=== PATIENT | male | born 1955 | race Caucasian/White ===

== ENCOUNTER 2016-12-03 13:04 | Emergency (ER) | payer MEDICARE ==
--- NOTE | 2016-12-03 14:30 | Diagnostic Imaging Report ---
CHEST X-RAY: AP view INDICATION: Shortness of breath COMPARISON: None FINDINGS: Left basal density is noted. Chronic lung changes are noted. Mild cardiomegaly is noted. Left basal subsegmental atelectasis versus scarring is noted. Mild cardiomegaly is noted with atherosclerosis. Degenerative changes of the spine are noted. IMPRESSION: Left basal density which may be due to atelectasis, however, focal infiltrate cannot be excluded. Mild cardiomegaly with atherosclerosis.
[2016-12-03 14:33] LABS: % BASOPHILS 0.9 % (0.0-2.0); % EOSINOPHILS 0.7 % (0.0-5.0); % LYMPHOCYTES 55.8 % (20.0-50.0); % MONOCYTES 10.4 % (2.0-10.0); % NEUTROPHILS 32.2 % (40.0-80.0); HEMATOCRIT 41.1 % (39.0-49.0); MEAN CELL VOLUME 91.1 fl (80-99); MEAN CORPUSCULAR HEMOGLOBIN 31.1 pg (26.0-30.0); MEAN CORPUSCULAR HGB CONC 34.2 pg (28.0-36.0); MEAN PLATELET VOLUME 7.3 fl; RED BLOOD COUNT 4.51 Mil/cmm (4.30-5.70); RED CELL DISTRIBUTION WIDTH 14.8 % (11.5-20.0)
[2016-12-03 14:47] LABS: INR 0.88 (0.5-1.4)
[2016-12-03 14:50] LABS: PLATELET COUNT 80 Th/cmm (150-400); WHITE BLOOD COUNT 9.3 Th/cmm (4.8-10.8)
[2016-12-03 14:55] LABS: ALB/GLOB RATIO 1.2 (1.0-1.8); ALKALINE PHOSPHATASE 83 U/L (34-104); ANION GAP 12.5 (7.0-16.0); BILIRUBIN,TOTAL 0.9 mg/dL (0.3-1.0); BUN - UREA NITROGEN 11 mg/dL (7-25); BUN/CREATININE RATIO 18.3; CARBON DIOXIDE 20.9 mEq/L (21.0-31.0); CHLORIDE 106 mEq/L (98-107); CHOLESTEROL 201 mg/dL (<200); CREATININE - SERUM 0.6 mg/dL (0.7-1.3); GLUCOSE 86 mg/dL (70-105); POTASSIUM SERUM 3.4 mEq/L (3.5-5.1); SGOT 162 U/L (13-39); SGPT/ALT 100 U/L (7-52); SODIUM SERUM 136 mEq/L (136-145); TRIGLYCERIDES 60 mg/dL (<150)
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
== END 2016-12-03 22:00 | disposition left against medical advice (07) ==
LOC: ER 13:04
DX: F10.129 Alcohol abuse with intoxication, unspecified (principal); I10 Essential (primary) hypertension; F17.200 Nicotine dependence, unspecified, uncomplicated; Z88.0 Allergy status to penicillin
CPT/HCPCS: 36415-UA; 71010-TC; 80053-TC; 80061-TC; 80320-TC; 84443-TC; 84484-TC; 85025-TC; 85610-TC; 85730-TC; 86592-TC

== ENCOUNTER 2017-12-29 20:53 | Emergency (ER) | payer MEDICARE ==
--- NOTE | 2017-12-29 21:35 | ED Physician Chart ---
ED Chief Complaint/HPI - Patient Information Date Seen:: 12/29/17 Time Seen:: 21:15 Chief Complaint:: right upper arm pain History of Present Illness:: Patient complains of right upper arm pain. At age 22 he had a compound fracture of the right humerus after which he developed osteomyelitis. At age 24 he had his right biceps and part of the right humerus resected. Patient's had recent vomiting and diarrhea and mild abdominal pain. Allergies:: Allergies Allergy/AdvReac Type Severity Reaction Status Date / Time Penicillins Allergy Verified 12/03/16 13:23 Vitals:: Vital Signs - 8 hr 12/29/17 20:56 Temp 98.2 F HR 101 RR 20 BP 141/79 O2 Sat % 96 Historian:: Patient Review:: Nurse's Note Reviewed ED Review of Systems - Review of Systems General/Constitutional: No fever, No chills, No weight loss, No weakness, No diaphoresis, No edema, No loss of appetite Skin: No skin lesions, No rash, No bruising Head: No headache, No light-headedness Eyes: No loss of vision, No pain, No diplopia ENT: No earache, No nasal drainage, No sore throat, No tinnitus Neck: No neck pain, No swelling, No thyromegaly, No stiffness, No mass noted Cardio Vascular: No chest pain, No palpitations, No PND, No orthopnea, No edema Pulmonary: No SOB, No cough, No sputum, No wheezing GI: Pain G/U: No dysuria, No frequency, No hematuria Musculoskeletal: No bone or joint pain, No back pain, No muscle pain Endocrine: No polyuria, No polydipsia Psychiatric: No prior psych history, No depression, No anxiety, No suicidal ideation Hematopoietic: No bruising, No lymphadenopathy Allergic/Immuno: No urticaria, No angioedema Neurological: No syncope, No focal symptoms, No weakness, No paresthesia, No headache, No seizure, No dizziness, No confusion, No vertigo ED Past Medical History - Past Medical History Past Medical History: Other (left nephrectomy) Family History: HTN Social History: Smoker, Alcohol, Other (any alcohol consumption) Surgical History: other (see history; left nephrectomy) Psychiatricy History: None Medication: Reviewed Family Medical History - Family Member Mother History Unknown: Yes Living Status: Unknown Hx Family Cancer: No Hx Family Coronary Artery Disease: No Hx Family Congestive Heart Failure: No Hx Family Hypertension: No Hx Family Stroke: No Hx Family Diabetes: No Hx Family Seizures: No Hx Family Dementia: No Hx Family AIDS: No Hx Family HIV: No Hx Family COPD: No Hx Family Hepatitis: No Hx Family Psychiatric Problems: No Hx Family Tuberculosis: No ED Physical Exam - Physical Examination General/Constitutional: Well-developed, well-nourished, Alert, No distress Head: Atraumatic Eyes: Lids, conjuctiva normal, PERRL Other Skin comments:: Extensive scarring right upper arm; no signs of infection ENMT: External ears, nose nl, Lips, teeth, gums nl Other ENMT comments:: 4 out of for poor dental hygiene Neck: No nuchal rigidity Respiratory: Nl effort/Exclusion, Clear to Auscultation Cardio Vascular: RRR GI: No organomegaly, No hernia, Normal BS's Other GI comments:: Left mid abdominal and level of the umbilicus and left lower quadrant mild tenderness Extremities: Normal digits & nails Neuro/Psych: Alert/oriented Misc: No paraspinal tenderness ED Labs/Radiology/EKG Results - Lab Results Results: Laboratory Results - last 24 hr 12/29/17 21:46 WBC 11.5 H RBC 4.67 Hgb 13.9 Hct 40.6 L MCV 87.0 MCH 29.7 MCHC Differential 34.2 RDW 13.4 Plt Count 286 MPV 7.3 Neutrophils % 53.7 Lymphocytes % 34.0 Monocytes % 10.9 H Eosinophils % 0.7 Basophils % 0.7 Laboratory Results - last 24 hr 12/29/17 12/29/17 21:46 21:46 WBC 11.5 H RBC 4.67 Hgb 13.9 Hct 40.6 L MCV 87.0 MCH 29.7 MCHC Differential 34.2 RDW 13.4 Plt Count 286 MPV 7.3 Neutrophils % 53.7 Lymphocytes % 34.0 Monocytes % 10.9 H Eosinophils % 0.7 Basophils % 0.7 Sodium 131 L Potassium 4.2 Chloride 101 Carbon Dioxide 24.3 Anion Gap 9.9 BUN 14 Creatinine 0.8 Est GFR ( Amer) > 60.0 Est GFR (Non-Af Amer) > 60.0 BUN/Creatinine Ratio 17.5 Glucose 115 H Calcium 9.3 Magnesium 1.5 L ED Assessment - Assessment General Assessment: Patient is medically cleared for incarceration. He has leukocytosis without a left shift. The right upper arm pain is chronic from osteomyelitis and surgery done many years ago. ED Septic Shock - . Is Septic Shock (SBP<90, OR Lactate>4 mmol\L) present?: No - <6hrs of presentation: Vital Signs: Vital Signs - 8 hr 12/29/17 20:56 Temp 98.2 F HR 101 RR 20 BP 141/79 O2 Sat % 96 ED Reassessment (Disposition) - Reassessment Reassessment Condition:: Unchanged - Diagnosis Diagnosis:: Right upper arm pain; leukocytosis; status post left nephrectomy - Patient Disposition Discharge/Transfer:: Long Term/Penitentiary Condition at Disposition:: Stable, Unchanged ED Discharge Plan - Patient Disposition Forms: Penitentiary Clearance
[2017-12-29 21:51] LABS: % BASOPHILS 0.7 % (0.0-2.0); % EOSINOPHILS 0.7 % (0.0-5.0); % MONOCYTES 10.9 % (2.0-10.0); % NEUTROPHILS 53.7 % (40.0-80.0); BASOPHILE ABSOLUTE 0.1 Th/cumm (0-0.2); EOSINOPHILE ABSOLUTE 0.1 Th/cmm (0.1-0.4); HEMATOCRIT 40.6 % (41.0-60); HEMOGLOBIN 13.9 gm/dL (12-16); LYMPHOCYTE ABSOLUTE 3.9 Th/cmm (1.5-3.0); MEAN CORPUSCULAR HEMOGLOBIN 29.7 pg (26.0-30.0); MEAN CORPUSCULAR HGB CONC 34.2 pg (28.0-36.0); MEAN PLATELET VOLUME 7.3 fl; MONOCYTE ABSOLUTE 1.3 Th/cmm (0.3-1.0); NEUTROPHILE ABSOLUTE 6.1 Th/cmm (1.8-8.0); PLATELET COUNT 286 Th/cmm (150-400); RED BLOOD COUNT 4.67 Mil/cmm (4.30-5.70); RED CELL DISTRIBUTION WIDTH 13.4 % (11.5-20.0); WHITE BLOOD COUNT 11.5 Th/cmm (4.8-10.8)
[2017-12-29 22:11] LABS: ANION GAP 9.9 (7.0-16.0); BUN - UREA NITROGEN 14 mg/dL (7-25); CALCIUM SERUM 9.3 mg/dL (8.6-10.3); CARBON DIOXIDE 24.3 mEq/L (21.0-31.0); CHLORIDE 101 mEq/L (98-107); CREATININE - SERUM 0.8 mg/dL (0.7-1.3); GFR AFRICAN-AMERICAN > 60.0 ml/min (>90); GFR NON AFRICAN-AMERICAN > 60.0 ml/min; GLUCOSE 115 mg/dL (70-105); MAGNESIUM 1.5 mg/dL (1.9-2.7); POTASSIUM SERUM 4.2 mEq/L (3.5-5.1); SODIUM SERUM 131 mEq/L (136-145)
[2017-12-29 23:01] LABS: URINE MICROSCOPIC INDICATED? YES; URINE SOURCE RANDOM
[2017-12-29 23:03] LABS: URINE BILIRUBIN NEGATIVE (NEGATIVE); URINE BLOOD NEGATIVE (NEGATIVE); URINE GLUCOSE (UA) NEGATIVE (NEGATIVE); URINE KETONE NEGATIVE (NEGATIVE); URINE LEUKOCYTE ESTERASE NEGATIVE (NEGATIVE); URINE NITRATE NEGATIVE (NEGATIVE); URINE PH 6.5 (4.6 - 8.0); URINE PROTEIN 30 mg/dL (NEGATIVE); URINE UROBILINOGEN 0.2 E.U./dL (0.2 - 1.0)
[2017-12-29 23:04] LABS: URINE CLARITY CLEAR (CLEAR); URINE COLOR YELLOW
[2017-12-29 23:18] LABS: URINE BACTERIA OCCASIONAL /hpf (NONE SEEN); URINE EPITHELIAL CELLS OCCASIONAL /lpf (FEW); URINE RBC 0-2 /hpf (0-5); URINE WBC 0-2 /hpf (0-5)
== END 2017-12-29 23:15 | disposition still patient (30) ==
LOC: ER 20:53
DX: D72.829 Elevated white blood cell count, unspecified (principal); M79.621 Pain in right upper arm; R19.7 Diarrhea, unspecified; F17.200 Nicotine dependence, unspecified, uncomplicated; Z88.0 Allergy status to penicillin
CPT/HCPCS: 36415-UA; 80048-TC; 81001-TC; 83735-TC; 85025-TC; Z7502; Z7610

== ENCOUNTER 2018-07-13 11:08 | Inpatient (IN) | payer MEDICARE ==
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
--- NOTE | 2018-07-13 12:00 | Diagnostic Imaging Report ---
CHEST X-RAY: AP view INDICATION: Pneumonia COMPARISON: 12/03/2016 FINDINGS: Mild chronic lung changes are seen with increased bibasilar markings. No focal consolidation or effusions. Borderline prominent heart is noted with atherosclerosis.. Degenerative changes are noted. IMPRESSION: Mild increased bibasal lung markings favoring atelectatic changes. No focal consolidation identified. Atherosclerotic vascular disease.
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
[2018-07-13 12:14] LABS: BASOPHILE ABSOLUTE 0.1 Th/cumm (0-0.2); EOSINOPHILE ABSOLUTE 2.5 Th/cmm (0.1-0.4); HEMATOCRIT 39.7 % (41.0-60); HEMOGLOBIN 13.6 gm/dL (12-16); LYMPHOCYTE ABSOLUTE 2.8 Th/cmm (1.5-3.0); MEAN CELL VOLUME 90.5 fl (80-99); MEAN CORPUSCULAR HEMOGLOBIN 30.9 pg (26.0-30.0); MEAN CORPUSCULAR HGB CONC 34.2 pg (28.0-36.0); MEAN PLATELET VOLUME 6.6 fl; MONOCYTE ABSOLUTE 1.8 Th/cmm (0.3-1.0); NEUTROPHILE ABSOLUTE 4.7 Th/cmm (1.8-8.0); PLATELET COUNT 349 Th/cmm (150-400); RED BLOOD COUNT 4.38 Mil/cmm (4.30-5.70); RED CELL DISTRIBUTION WIDTH 14.7 % (11.5-20.0); WHITE BLOOD COUNT 11.9 Th/cmm (4.8-10.8)
[2018-07-13 12:34] LABS: ATYPICAL LYMPH 5 %; BAND NEUTROPHILE 1 % (0-10); EOSINOPHIL 17 % (0-5); LYMPHOCYTE 22 % (20-50); MONOCYTE 17 % (2-10); NEUTROPHILS 38 % (40-80); PLATELET ESTIMATE ADEQUATE (NORMAL)
[2018-07-13 12:40] LABS: ALB/GLOB RATIO 1.3 (1.0-1.8); ALKALINE PHOSPHATASE 68 U/L (34-104); ANION GAP 13.7 (7.0-16.0); BILIRUBIN,TOTAL 0.8 mg/dL (0.3-1.0); BUN - UREA NITROGEN 22 mg/dL (7-25); CALCIUM SERUM 8.6 mg/dL (8.6-10.3); CARBON DIOXIDE 19.9 mEq/L (21.0-31.0); CHLORIDE 101 mEq/L (98-107); CREATININE - SERUM 0.8 mg/dL (0.7-1.3); GFR AFRICAN-AMERICAN > 60.0 ml/min (>90); GFR NON AFRICAN-AMERICAN > 60.0 ml/min; GLUCOSE 103 mg/dL (70-105); POTASSIUM SERUM 4.6 mEq/L (3.5-5.1); SGOT 24 U/L (13-39); SGPT/ALT 27 U/L (7-52); SODIUM SERUM 130 mEq/L (136-145); TOTAL PROTEIN,SERUM 5.4 gm/dL (6.0-8.3)
[2018-07-13 14:56] VITALS: BP 126/48
[2018-07-13] MEDS: Sodium Chloride 0.9% 1,000 ML IV SCH (15:24)
[2018-07-13] MEDS: Vancomycin HCl 1.5 GM in Sodium Chloride 0.9% 500 ML IV SCH (15:52)
[2018-07-13] MEDS: Sulfamethoxazole/TMP 800/160mg Tab PO SCH (23:42)
[2018-07-14] MEDS: Sodium Chloride 0.9% 1,000 ML IV SCH (03:45)
[2018-07-14] MEDS: Vancomycin HCl 1.5 GM in Sodium Chloride 0.9% 500 ML IV SCH ×2 (03:46→14:56)
[2018-07-14 07:06] LABS: HEMATOCRIT 35.1 % (41.0-60); HEMOGLOBIN 11.5 gm/dL (12-16); MEAN CORPUSCULAR HEMOGLOBIN 29.9 pg (26.0-30.0); MEAN CORPUSCULAR HGB CONC 32.8 pg (28.0-36.0); MEAN PLATELET VOLUME 6.3 fl; RED BLOOD COUNT 3.85 Mil/cmm (4.30-5.70); RED CELL DISTRIBUTION WIDTH 14.7 % (11.5-20.0); WHITE BLOOD COUNT 11.1 Th/cmm (4.8-10.8)
[2018-07-14 07:16] LABS: PLATELET COUNT 273 Th/cmm (150-400)
[2018-07-14 07:30] LABS: NEUTROPHILS 32 % (40-80)
[2018-07-14 07:31] LABS: BASOPHIL 0 % (0-3); EOSINOPHIL 27 % (0-5); MONOCYTE 11 % (2-10)
[2018-07-14 07:32] LABS: BAND NEUTROPHILE 2 % (0-10); LYMPHOCYTE 28 % (20-50)
[2018-07-14 07:35] LABS: ALB/GLOB RATIO 1.1 (1.0-1.8); ALBUMIN 2.4 gm/dL (4.2-5.5); ALKALINE PHOSPHATASE 57 U/L (34-104); ANION GAP 10.3 (7.0-16.0); BILIRUBIN,TOTAL 0.5 mg/dL (0.3-1.0); BUN - UREA NITROGEN 26 mg/dL (7-25); CALCIUM SERUM 8.1 mg/dL (8.6-10.3); CARBON DIOXIDE 21.6 mEq/L (21.0-31.0); CHLORIDE 106 mEq/L (98-107); CREATININE - SERUM 0.9 mg/dL (0.7-1.3); GFR AFRICAN-AMERICAN > 60.0 ml/min (>90); GFR NON AFRICAN-AMERICAN > 60.0 ml/min; GLUCOSE 95 mg/dL (70-105); POTASSIUM SERUM 3.9 mEq/L (3.5-5.1); SGOT 26 U/L (13-39); SGPT/ALT 23 U/L (7-52); SODIUM SERUM 134 mEq/L (136-145); TOTAL PROTEIN,SERUM 4.6 gm/dL (6.0-8.3)
--- NOTE | 2018-07-14 09:13 | History and Physical ---
History of Present Illness - HPI Chief Complaint: Pruritus HPI: Patient refer that x 2 weeks he has having an itching rash in all body. Vital Signs: Last Vital Signs Temp 100.0 F 07/13/18 19:58 Pulse 127 07/13/18 19:58 Resp 18 07/13/18 20:00 BP 140/75 07/13/18 19:58 Pulse Ox 96 07/13/18 19:58 Past Medical History Cardiovascular: Report: No Pertinent Hx Pulmonary: Report: No Pertinent Hx WORLD DESIGNER: Report: No Pertinent Hx GI: Report: No Pertinent Hx Psych: Report: No Pertinent Hx Musculoskeletal: Report: No Pertinent Hx Rheumatologic: Report: No pertinent Hx Infectious Disease: Report: Other (Skin rash) Renal/: Report: No Pertinent Hx Endocrine: Report: No Pertinent Hx Dermatology: Report: Cellulitis Family Medical History - Family Member Mother History Unknown: Yes Living Status: Unknown Hx Family Cancer: No Hx Family Coronary Artery Disease: No Hx Family Congestive Heart Failure: No Hx Family Hypertension: No Hx Family Stroke: No Hx Family Diabetes: No Hx Family Seizures: No Hx Family Dementia: No Hx Family AIDS: No Hx Family HIV: No Hx Family COPD: No Hx Family Hepatitis: No Hx Family Psychiatric Problems: No Hx Family Tuberculosis: No Social History Smoke: No Alcohol: Heavy Drugs: Marijuana Lives: Homeless Domestic Violence: Negative - Medications Home Medications: Home Medication Medication Instructions Recorded Type NK [No Home Meds] 07/13/18 History - Allergies Allergies/Adverse Reactions: Allergies Allergy/AdvReac Type Severity Reaction Status Date / Time Penicillins Allergy Verified 12/03/16 13:23 Review of Systems - Review of Systems Constitutional: Report: Weakness Eyes: Report: No Significant ENT: Report: No Significant Respiratory: Report: No Significant Cardiovascular: Report: No Significant Gastrointestinal: Report: No Significant Genitourinary: Report: No Significant Musculoskeletal: Report: No Significant Skin: Report: Rash Neurological: Report: Weakness Physical Exam - Physical Exam HEENT: Report: Ears Nose Throat within normal limits Neck: Report: Within normal limits Cardiovascular Systems: Report: Regular, Rate and Rhythm Respiratory: Report: Breath Sounds are within normal limits Abdomen: Report: Non-tender to palpation Back: Report: Inspection of back is within normal limits. Extremities: Report: Non-tender to palpation. Skin: Report: Skin Rash noted, Other (There is redness in all body skin, with urvashi descamation) Neuro/Psych: Report: Mood affect is within normal limits - Lab Results All Lab Results last 24 hours: Laboratory Results - last 24 hr 07/13/18 07/13/18 07/13/18 12:00 12:00 12:00 WBC 11.9 H RBC 4.38 Hgb 13.6 Hct 39.7 L MCV 90.5 MCH 30.9 H MCHC Differential 34.2 RDW 14.7 Plt Count 349 MPV 6.6 Add Manual Diff YES Band Neutrophils % 1 Neutrophils (Manual) 38 L Lymphocytes 22 Monocytes 17 H Eosinophils 17 H Basophils Atypical Lymphocytes 5 Platelet Estimate ADEQUATE Sodium 130 L Potassium 4.6 Chloride 101 Carbon Dioxide 19.9 L Anion Gap 13.7 BUN 22 Creatinine 0.8 Est GFR ( Amer) > 60.0 Est GFR (Non-Af Amer) > 60.0 BUN/Creatinine Ratio 27.5 Glucose 103 Calcium 8.6 Total Bilirubin 0.8 AST 24 ALT 27 Alkaline Phosphatase 68 Total Protein 5.4 L Albumin 3.0 L Globulin 2.4 Albumin/Globulin Ratio 1.3 Lipase 23 TSH 07/14/18 07/14/18 07/14/18 07:00 07:00 07:00 WBC 11.1 H RBC 3.85 L Hgb 11.5 L Hct 35.1 L MCV 91.0 MCH 29.9 MCHC Differential 32.8 RDW 14.7 Plt Count 273 D MPV 6.3 Add Manual Diff YES Band Neutrophils % 2 Neutrophils (Manual) 32 L Lymphocytes 28 Monocytes 11 H Eosinophils 27 H Basophils 0 Atypical Lymphocytes Platelet Estimate Sodium 134 L Potassium 3.9 Chloride 106 Carbon Dioxide 21.6 Anion Gap 10.3 BUN 26 H Creatinine 0.9 Est GFR ( Amer) > 60.0 Est GFR (Non-Af Amer) > 60.0 BUN/Creatinine Ratio 28.9 Glucose 95 Calcium 8.1 L Total Bilirubin 0.5 AST 26 ALT 23 Alkaline Phosphatase 57 Total Protein 4.6 L Albumin 2.4 L Globulin 2.2 Albumin/Globulin Ratio 1.1 Lipase TSH 3.29 - Assessment Assessment: Current Active Problems Problem Status Onset Exfoliative dermatitis Acute RED SKIN LESIONS Acute Patient is awake, alert, calm insome distress. Dx: Cellulitis, Chronic alcoholism - Plan Plan: IN NS is ordered , IB AB, Benadryl and prednisone are ordered. Consult with ID is requested.
[2018-07-14] MEDS: Sulfamethoxazole/TMP 800/160mg Tab PO SCH ×2 (10:11→17:44)
[2018-07-14] MEDS ORDERED: Probiotic Screen MC PRN (14:28)
[2018-07-15] MEDS: Vancomycin HCl 1.5 GM in Sodium Chloride 0.9% 500 ML IV SCH (02:36)
[2018-07-15] MEDS ORDERED: Permethrin 1% Rinse 60 mL Bottle TP ONE (04:15)
[2018-07-15] MEDS: Sodium Chloride 0.9% 1,000 ML IV SCH (05:34)
--- NOTE | 2018-07-15 06:48 | Consultation ---
DATE OF CONSULTATION: 07/15/2018 INFECTIOUS DISEASE CONSULTATION REFERRING PHYSICIAN: Dr. Wilfrid Blakely. REASON FOR CONSULTATION: Body rash. HISTORY OF PRESENT ILLNESS: The patient is a 62-year-old male with no significant past medical history presented from [facility] for itchy rash all over the body with significant erythema involving face. On initial evaluation, the patient was afebrile, but his temperature went up to 100 degrees Fahrenheit. His WBC count was 11,900. ID consult was called for further evaluation and management. PAST MEDICAL HISTORY: Unknown. ALLERGIES: PENICILLIN. MEDICATIONS: As per medication reconciliation sheet. ANTIBIOTIC OJEDA: The patient is on vancomycin. SOCIAL HISTORY: The patient is homeless and drinks alcohol. The patient also smokes marijuana. No history of drug use. REVIEW OF SYSTEMS: GENERAL: The patient has no fever, no chills, has some generalized weakness. HEENT: No diplopia, no photophobia, no sore throat. RESPIRATORY: No cough, no shortness of breath. CVS: No chest pain. No palpitation. GASTROINTESTINAL: No nausea, no vomiting, no diarrhea, no constipation. GENITOURINARY: No dysuria. NEUROLOGICAL: No headache, no dizziness, no focal weakness. SKIN: The patient has generalized scaly rash all over the body even involving the face. PHYSICAL EXAMINATION: VITAL SIGNS: Currently vital signs show temperature is 98.3 degrees Fahrenheit, pulse 90, respiration 19, blood pressure 110/63. GENERAL: The patient is comfortable, lying in the bed, not in acute distress. HEENT: Head is normocephalic, atraumatic. Oral cavity moist, pink tongue. NECK: Supple. No JVD. No carotid bruit. Trachea midline. CHEST: Bilateral breath sounds. No crackles or wheezing. CARDIOVASCULAR: S1, S2 within normal limits. Regular rhythm. No murmur, no gallop. ABDOMEN: Soft, nontender, nondistended. Bowel sounds present. EXTREMITIES: No cyanosis, no clubbing, no edema. NEUROLOGIC: Alert, awake, oriented x 3. SKIN: The patient has scaly rash all over the body involving all the extremities. It also involved the redness of the face with some scaly lesions on his cheeks also. LABORATORY DATA: Current lab shows WBC count is 11,100, hemoglobin 11.5, hematocrit 35.1, platelets are 272,000, neutrophil is 32% and bands are 2%. Sodium 134, potassium 3.9, chloride 106, bicarbonate is 21.6, BUN is 26, creatinine is 0.9, glucose is 95. MRSA screen is negative. Lumbar spine x-ray shows DJD. A chest x-ray showed increased bibasilar lung marking for atelectasis, no focal consolidation. IMPRESSION: 1. Scaly rash with itching, most likely [place] scabies. 2. Leukocytosis. 3. Homelessness. 4. Lice infestation. 5. Cellulitis all over the body. PLAN AND RECOMMENDATIONS: 1. We will give Nix Shampoo or topical cream. 2. Elimite was applied this morning. 3. Continue vancomycin and start doxycycline p.o. Thank you, Dr. Blakely for involving me in taking care of this patient. JOB# [id number] MTDD
[2018-07-15] MEDS: Lactobacillus Rhamnosus GG 15 Billion CFU CAP.SPRINK PO SCH (08:51)
[2018-07-15] MEDS: Sulfamethoxazole/TMP 800/160mg Tab PO SCH ×2 (08:51→16:52)
--- NOTE | 2018-07-15 10:44 | General Progress Note ---
Subjective - Review of Systems Service Date: 07/15/18 Subjective: I have pain Objective - Results Result Diagrams: 07/14/18 07:00 07/14/18 07:00 Recent Labs: Laboratory Last Values WBC 11.1 Th/cmm (4.8-10.8) H 07/14/18 07:00 RBC 3.85 Mil/cmm (4.30-5.70) L 07/14/18 07:00 Hgb 11.5 gm/dL (12-16) L 07/14/18 07:00 Hct 35.1 % (41.0-60) L 07/14/18 07:00 MCV 91.0 fl (80-99) 07/14/18 07:00 MCH 29.9 pg (26.0-30.0) 07/14/18 07:00 MCHC Differential 32.8 pg (28.0-36.0) 07/14/18 07:00 RDW 14.7 % (11.5-20.0) 07/14/18 07:00 Plt Count 273 Th/cmm (150-400) D 07/14/18 07:00 MPV 6.3 fl 07/14/18 07:00 Add Manual Diff YES 07/14/18 07:00 Band Neutrophils % 2 % (0-10) 07/14/18 07:00 Neutrophils (Manual) 32 % (40-80) L 07/14/18 07:00 Lymphocytes 28 % (20-50) 07/14/18 07:00 Monocytes 11 % (2-10) H 07/14/18 07:00 Eosinophils 27 % (0-5) H 07/14/18 07:00 Basophils 0 % (0-3) 07/14/18 07:00 Atypical Lymphocytes 5 % 07/13/18 12:00 Platelet Estimate ADEQUATE (NORMAL) 07/13/18 12:00 Sodium 134 mEq/L (136-145) L 07/14/18 07:00 Potassium 3.9 mEq/L (3.5-5.1) 07/14/18 07:00 Chloride 106 mEq/L (98-107) 07/14/18 07:00 Carbon Dioxide 21.6 mEq/L (21.0-31.0) 07/14/18 07:00 Anion Gap 10.3 (7.0-16.0) 07/14/18 07:00 BUN 26 mg/dL (7-25) H 07/14/18 07:00 Creatinine 0.9 mg/dL (0.7-1.3) 07/14/18 07:00 Est GFR ( Amer) > 60.0 ml/min (>90) 07/14/18 07:00 Est GFR (Non-Af Amer) > 60.0 ml/min 07/14/18 07:00 BUN/Creatinine Ratio 28.9 07/14/18 07:00 Glucose 95 mg/dL (70-105) 07/14/18 07:00 Calcium 8.1 mg/dL (8.6-10.3) L 07/14/18 07:00 Total Bilirubin 0.5 mg/dL (0.3-1.0) 07/14/18 07:00 AST 26 U/L (13-39) 07/14/18 07:00 ALT 23 U/L (7-52) 07/14/18 07:00 Alkaline Phosphatase 57 U/L (34-104) 07/14/18 07:00 Total Protein 4.6 gm/dL (6.0-8.3) L 07/14/18 07:00 Albumin 2.4 gm/dL (4.2-5.5) L 07/14/18 07:00 Globulin 2.2 gm/dL 07/14/18 07:00 Albumin/Globulin Ratio 1.1 (1.0-1.8) 07/14/18 07:00 Lipase 23 U/L (11-82) 07/13/18 12:00 TSH 3.29 uIU/ml (0.34-5.60) 07/14/18 07:00 - Physical Exam Vitals and I&O: Vital Signs Temp 97.8 F 07/15/18 08:05 Pulse 114 07/15/18 08:05 Resp 19 07/15/18 08:05 BP 127/69 07/15/18 08:05 Pulse Ox 98 07/15/18 08:05 Intake & Output 07/14/18 07/15/18 07/15/18 18:59 06:59 18:59 Intake Total 1220 2320 Balance 1220 2320 Weight (lbs) 97.976 kg 97.069 kg Intake: Intake, IV Amount 500 Vancomycin HCl 1.5 gm In 500 Sodium Chloride 0.9% 500 ml @ 250 mls/hr IV Q12H [facility] Rx#:[id number] Oral [id number] Other: # Voids 2 3 # Bowel Movements 1 1 Weight Source Bedscale Bedscale Active Medications: Current Medications Diphenhydramine HCl (Benadryl) 25 mg PO Q8H PRN PRN Reason: Itching Stop: 09/11/18 14:43 Last Admin: 07/14/18 18:35 Dose: 25 mg Doxycycline Hyclate (Vibramycin) 100 mg PO Q12HR [facility] Stop: 09/13/18 08:59 Last Admin: 07/15/18 08:50 Dose: 100 mg Sodium Chloride (Nacl 0.9%) 1,000 mls @ 80 mls/hr IV .[id number] [facility] Stop: 09/11/18 14:47 Last Admin: 07/15/18 05:34 Dose: 80 mls/hr Vancomycin HCl 1.5 gm/ Sodium (Chloride) 500 mls @ 250 mls/hr IV Q12H [facility] Stop: 09/12/18 14:59 Last Admin: 07/15/18 02:36 Dose: 250 mls/hr Ibuprofen (Motrin) 800 mg PO TID [facility] Stop: 09/11/18 20:59 Last Admin: 07/15/18 08:51 Dose: 800 mg Lactobacillus Rhamnosus (Culturelle 15b) 1 each PO DAILY [facility] Stop: 09/13/18 08:59 Last Admin: 07/15/18 08:51 Dose: 1 each Lorazepam (Ativan) 1 mg PO Q8H PRN; Protocol PRN Reason: Agitation Stop: 09/11/18 14:44 Last Admin: 07/14/18 10:19 Dose: 1 mg Miscellaneous (Vancomycin Iv Per Pharmacy) 1 ea MC Q24H [facility] Stop: 09/11/18 14:59 Miscellaneous (Probiotic Screen) 1 ea MC PRN PRN PRN Reason: PROTOCOL Stop: 09/12/18 14:27 Prednisone (Deltasone) 20 mg PO TIDWM [facility] Stop: 09/12/18 09:14 Last Admin: 07/15/18 08:51 Dose: 20 mg Trimethoprim/Sulfamethoxazole (Bactrim Ds) 1 tab PO BID [facility] Stop: 09/11/18 22:29 Last Admin: 07/15/18 08:51 Dose: 1 tab General: Alert, No acute distress HEENT: Atraumatic Neck: Supple Cardiovascular: Regular rate Abdomen: Bowel sounds, Soft Extremities: Other (No edema) Neurological: Other (Unstable gait) Skin: Other (Redness and descamation all over the body) Psych/Mental Status: Other (Some confusion) Assessment/Plan - Problem List Patient Problems: All Active Problems Exfoliative dermatitis (Acute) L26 RED SKIN LESIONS (Acute) - Assessment Assessment: Current Active Problems Problem Status Onset Exfoliative dermatitis Acute RED SKIN LESIONS Acute Patient is awake, alert, calm insome distress. Dx: Cellulitis, Scabies, lice infestation, Chronic alcoholism - Plan Plan: IN NS is ordered , IB AB, Benadryl and prednisone. Follow by ID. Nutritional Asmnt/Malnutr-PDOC - Dietary Evaluation Malnutrition Findings (Please click <Entered> for more info): Nutritional Asmnt/Malnutrition Start: 07/14/18 14: 45 Text: Status: Complete Freq: Protocol: Document 07/14/18 14:45 GOOD (Rec: 07/14/18 15:01 GOOD [email or web address]) Nutritional Asmnt/Malnutrition Patient General Information Nutritional Screening High Risk Consult Diagnosis exfoliative dermatitis Pertinent Medical Hx/Surgical Hx HTN, cellulitis Subjective Information Received diet consult for shaista score 9. Pt sleeping at time of visit. Nursing noted PO intake: 100% dinner last night. Current Diet Order/ Nutrition Support regular Pertinent Medications culturelle, Nacl 0.9% 80ml/hr, vancomycin, bactrim Pertinent Labs 07/14: Na 134, BUN 26, Ca 8.1, Alb 2.4 07/13: Na 130, BUN 22, Ca 8.6, Alb 3.0 Nutritional Hx/Data Height 1.73 m Height (Calculated Centimeters) 172.7 Current Weight (lbs) 98.203 kg Weight (Calculated Kilograms) 98.2 Weight (Calculated Grams) 70796.7 [place] Body Weight 154 lb Body Mass Index (BMI) 32.9 Weight Status Obese GI Symptoms GI Symptoms None Last BM none noted Difficult in: None Food Allergies No Skin Integrity/Comment: dermatitis: entire body, shaista 9 Estimated Nutritional Goals BEE in Kcals: Adj wt of IBW Calories/Kcals/Kg 25-30 (based on adj wt 77.1 kg ) Kcals Calculated 3601-1999 Protein: Adj wt of IBW Protein g/k.8-1 (based on adj wt 77.1 kg ) Protein Calculated 62-77 g Fluid: ml 3500-2575 (1 ml/kcal) Nutritional Problem 1. Problem Problem Altered nutrition related lab values Etiology electrolyte imbalance Signs/Symptoms: Na 134, Ca 8.1 Malnutrition Alert Is there a minimum of two criteria No selected? Query Text:Check all the applicable criteria. A minimum of two criteria are recommended for diagnosis of either severe or non-severe malnutrition. Malnutrition Related to Morbid Obesity Malnutrition related to morbid obesity No Intervention/Recommendation Comments 1. Continue with regular diet as ordered. MD to replace electrolytes as needed 2. Monitor PO intake, wt, labs and skin integrity 3. F/U as moderate risk in 3-5 days, 07/17- Expected Outcomes/Goals Expected Outcomes/Goals 1. PO intake to meet at least 75% of all meals 2. Wt stability, skin integrity to improve, labs to approach WNL. Reviewed by Giselle Law RD
--- NOTE | 2018-07-15 14:59 | Infectious Disease Prog Note ---
Infectious Disease Subjective - Review of Systems Service Date: 07/15/18 Subjective: There is no new change, no fever. Infectious Disease Objective - Results Result Diagrams: 07/16/18 06:25 07/16/18 06:25 Recent Labs: Laboratory Last Values WBC 11.1 Th/cmm (4.8-10.8) H 07/14/18 07:00 RBC 3.85 Mil/cmm (4.30-5.70) L 07/14/18 07:00 Hgb 11.5 gm/dL (12-16) L 07/14/18 07:00 Hct 35.1 % (41.0-60) L 07/14/18 07:00 MCV 91.0 fl (80-99) 07/14/18 07:00 MCH 29.9 pg (26.0-30.0) 07/14/18 07:00 MCHC Differential 32.8 pg (28.0-36.0) 07/14/18 07:00 RDW 14.7 % (11.5-20.0) 07/14/18 07:00 Plt Count 273 Th/cmm (150-400) D 07/14/18 07:00 MPV 6.3 fl 07/14/18 07:00 Add Manual Diff YES 07/14/18 07:00 Band Neutrophils % 2 % (0-10) 07/14/18 07:00 Neutrophils (Manual) 32 % (40-80) L 07/14/18 07:00 Lymphocytes 28 % (20-50) 07/14/18 07:00 Monocytes 11 % (2-10) H 07/14/18 07:00 Eosinophils 27 % (0-5) H 07/14/18 07:00 Basophils 0 % (0-3) 07/14/18 07:00 Atypical Lymphocytes 5 % 07/13/18 12:00 Platelet Estimate ADEQUATE (NORMAL) 07/13/18 12:00 Sodium 134 mEq/L (136-145) L 07/14/18 07:00 Potassium 3.9 mEq/L (3.5-5.1) 07/14/18 07:00 Chloride 106 mEq/L (98-107) 07/14/18 07:00 Carbon Dioxide 21.6 mEq/L (21.0-31.0) 07/14/18 07:00 Anion Gap 10.3 (7.0-16.0) 07/14/18 07:00 BUN 26 mg/dL (7-25) H 07/14/18 07:00 Creatinine 0.9 mg/dL (0.7-1.3) 07/14/18 07:00 Est GFR ( Amer) > 60.0 ml/min (>90) 07/14/18 07:00 Est GFR (Non-Af Amer) > 60.0 ml/min 07/14/18 07:00 BUN/Creatinine Ratio 28.9 07/14/18 07:00 Glucose 95 mg/dL (70-105) 07/14/18 07:00 Calcium 8.1 mg/dL (8.6-10.3) L 07/14/18 07:00 Total Bilirubin 0.5 mg/dL (0.3-1.0) 07/14/18 07:00 AST 26 U/L (13-39) 07/14/18 07:00 ALT 23 U/L (7-52) 07/14/18 07:00 Alkaline Phosphatase 57 U/L (34-104) 07/14/18 07:00 Total Protein 4.6 gm/dL (6.0-8.3) L 07/14/18 07:00 Albumin 2.4 gm/dL (4.2-5.5) L 07/14/18 07:00 Globulin 2.2 gm/dL 07/14/18 07:00 Albumin/Globulin Ratio 1.1 (1.0-1.8) 07/14/18 07:00 Lipase 23 U/L (11-82) 07/13/18 12:00 TSH 3.29 uIU/ml (0.34-5.60) 07/14/18 07:00 Vancomycin Trough 14.0 ug/mL (5-10) H 07/15/18 13:00 - Physical Exam Vitals and I&O: Vital Signs Temp 97.6 F 07/15/18 11:17 Pulse 98 07/15/18 11:17 Resp 18 07/15/18 11:17 BP 129/72 07/15/18 11:17 Pulse Ox 98 07/15/18 11:17 Intake & Output 07/14/18 07/15/18 07/15/18 18:59 06:59 18:59 Intake Total 1220 2320 Balance 1220 2320 Weight (lbs) 97.976 kg 97.069 kg Intake: Intake, IV Amount 500 Vancomycin HCl 1.5 gm In 500 Sodium Chloride 0.9% 500 ml @ 250 mls/hr IV Q12H [facility] Rx#:[id number] Oral 720 2320 Other: # Voids 2 3 # Bowel Movements 1 1 Weight Source Bedscale Bedscale Active Medications: Current Medications Diphenhydramine HCl (Benadryl) 25 mg PO Q8H PRN PRN Reason: Itching Stop: 09/11/18 14:43 Last Admin: 07/14/18 18:35 Dose: 25 mg Doxycycline Hyclate (Vibramycin) 100 mg PO Q12HR [facility] Stop: 09/13/18 08:59 Last Admin: 07/15/18 08:50 Dose: 100 mg Sodium Chloride (Nacl 0.9%) 1,000 mls @ 80 mls/hr IV .[id number] [facility] Stop: 09/11/18 14:47 Last Admin: 07/15/18 05:34 Dose: 80 mls/hr Vancomycin HCl 1 gm/ Sodium (Chloride) 250 mls @ 165 mls/hr IV Q12HR@0300,1500 [facility] Stop: 09/13/18 14:59 Ibuprofen (Motrin) 800 mg PO TID [facility] Stop: 09/11/18 20:59 Last Admin: 07/15/18 13:48 Dose: Not Given Lactobacillus Rhamnosus (Culturelle 15b) 1 each PO DAILY [facility] Stop: 09/13/18 08:59 Last Admin: 07/15/18 08:51 Dose: 1 each Lorazepam (Ativan) 1 mg PO Q8H PRN; Protocol PRN Reason: Agitation Stop: 09/11/18 14:44 Last Admin: 07/15/18 11:11 Dose: 1 mg Miscellaneous (Vancomycin Iv Per Pharmacy) 1 ea Q24H [facility] Stop: 09/11/18 14:59 Miscellaneous (Probiotic Screen) 1 ea PRN PRN PRN Reason: PROTOCOL Stop: 09/12/18 14:27 Prednisone (Deltasone) 20 mg PO TIDWM [facility] Stop: 09/12/18 09:14 Last Admin: 07/15/18 12:31 Dose: 20 mg Trimethoprim/Sulfamethoxazole (Bactrim Ds) 1 tab PO BID [facility] Stop: 09/11/18 22:29 Last Admin: 07/15/18 08:51 Dose: 1 tab General: no acute distress, well developed, well nourished HEENT: atraumatic, normocephalic, PERRLA Neck: supple, no thyromegaly, no lymphadenopathy Cardiovascular: S1S2, regular Lungs: clear to auscultation bilaterally, clear to percussion Abdomen: soft, no tender, no distended Extremities: no cyanosis, no clubbing, no edema Neurological: awake, alert, oriented Skin: intact, rash Infectious Disease Assmt/Plan - Problem List Patient Problems: All Active Problems Exfoliative dermatitis (Acute) L26 RED SKIN LESIONS (Acute) - Assessment Assessment: 1. Scabies. 2. Lice infectation. 3. Cellulitis all over body. 4. Homeless ness. 5. Leukocytosis. 6. Dermatitis. - Plan Plan: Nix treatemnt. elimite applied. Continue vancO IV and doxy po. Nutritional Asmnt/Malnutr-PDOC - Dietary Evaluation Malnutrition Findings (Please click <Entered> for more info): Nutritional Asmnt/Malnutrition Start: 07/14/18 14: 45 Text: Status: Complete Freq: Protocol: Document 07/14/18 14:45 GOOD (Rec: 07/14/18 15:01 GOOD [email or web address]) Nutritional Asmnt/Malnutrition Patient General Information Nutritional Screening High Risk Consult Diagnosis exfoliative dermatitis Pertinent Medical Hx/Surgical Hx HTN, cellulitis Subjective Information Received diet consult for shaista score 9. Pt sleeping at time of visit. Nursing noted PO intake: 100% dinner last night. Current Diet Order/ Nutrition Support regular Pertinent Medications culturelle, Nacl 0.9% 80ml/hr, vancomycin, bactrim Pertinent Labs 07/14: Na 134, BUN 26, Ca 8.1, Alb 2.4 07/13: Na 130, BUN 22, Ca 8.6, Alb 3.0 Nutritional Hx/Data Height 1.73 m Height (Calculated Centimeters) 172.7 Current Weight (lbs) 98.203 kg Weight (Calculated Kilograms) 98.2 Weight (Calculated Grams) 82497.7 [place] Body Weight 154 lb Body Mass Index (BMI) 32.9 Weight Status Obese GI Symptoms GI Symptoms None Last BM none noted Difficult in: None Food Allergies No Skin Integrity/Comment: dermatitis: entire body, shaista 9 Estimated Nutritional Goals BEE in Kcals: Adj wt of IBW Calories/Kcals/Kg 25-30 (based on adj wt 77.1 kg ) Kcals Calculated 4602-6207 Protein: Adj wt of IBW Protein g/k.8-1 (based on adj wt 77.1 kg ) Protein Calculated 62-77 g Fluid: ml 3546-8361 (1 ml/kcal) Nutritional Problem 1. Problem Problem Altered nutrition related lab values Etiology electrolyte imbalance Signs/Symptoms: Na 134, Ca 8.1 Malnutrition Alert Is there a minimum of two criteria No selected? Query Text:Check all the applicable criteria. A minimum of two criteria are recommended for diagnosis of either severe or non-severe malnutrition. Malnutrition Related to Morbid Obesity Malnutrition related to morbid obesity No Intervention/Recommendation Comments 1. Continue with regular diet as ordered. MD to replace electrolytes as needed 2. Monitor PO intake, wt, labs and skin integrity 3. F/U as moderate risk in 3-5 days, 07/17- Expected Outcomes/Goals Expected Outcomes/Goals 1. PO intake to meet at least 75% of all meals 2. Wt stability, skin integrity to improve, labs to approach WNL. Reviewed by Giselle Law RD
[2018-07-16 06:36] LABS: HEMATOCRIT 34.5 % (41.0-60); HEMOGLOBIN 11.6 gm/dL (12-16); MEAN CELL VOLUME 91.6 fl (80-99); MEAN CORPUSCULAR HEMOGLOBIN 30.7 pg (26.0-30.0); MEAN CORPUSCULAR HGB CONC 33.6 pg (28.0-36.0); MEAN PLATELET VOLUME 6.4 fl; PLATELET COUNT 266 Th/cmm (150-400); RED BLOOD COUNT 3.77 Mil/cmm (4.30-5.70); RED CELL DISTRIBUTION WIDTH 15.2 % (11.5-20.0)
[2018-07-16 06:46] LABS: ALB/GLOB RATIO 1.1 (1.0-1.8); ALBUMIN 2.9 gm/dL (4.2-5.5); ALKALINE PHOSPHATASE 58 U/L (34-104); ANION GAP 11.2 (7.0-16.0); BILIRUBIN,TOTAL 0.4 mg/dL (0.3-1.0); BUN - UREA NITROGEN 20 mg/dL (7-25); CALCIUM SERUM 8.7 mg/dL (8.6-10.3); CARBON DIOXIDE 22.9 mEq/L (21.0-31.0); CHLORIDE 107 mEq/L (98-107); CREATININE - SERUM 0.8 mg/dL (0.7-1.3); GFR AFRICAN-AMERICAN > 60.0 ml/min (>90); GFR NON AFRICAN-AMERICAN > 60.0 ml/min; GLUCOSE 116 mg/dL (70-105); POTASSIUM SERUM 4.1 mEq/L (3.5-5.1); SGOT 18 U/L (13-39); SGPT/ALT 22 U/L (7-52); SODIUM SERUM 137 mEq/L (136-145); TOTAL PROTEIN,SERUM 5.5 gm/dL (6.0-8.3)
[2018-07-16 06:49] LABS: WHITE BLOOD COUNT 16.5 Th/cmm (4.8-10.8)
[2018-07-16 07:05] LABS: BAND NEUTROPHILE 1 % (0-10); BASOPHIL 0 % (0-3); EOSINOPHIL 0 % (0-5); LYMPHOCYTE 21 % (20-50); MONOCYTE 9 % (2-10); NEUTROPHILS 69 % (40-80)
[2018-07-16] MEDS: Lactobacillus Rhamnosus GG 15 Billion CFU CAP.SPRINK PO SCH (08:51)
[2018-07-16] MEDS: Sulfamethoxazole/TMP 800/160mg Tab PO SCH ×2 (08:51→17:21)
--- NOTE | 2018-07-16 10:42 | General Progress Note ---
Subjective - Review of Systems Service Date: 06/16/18 Subjective: I have itching Objective - Results Result Diagrams: 07/16/18 06:25 07/16/18 06:25 Recent Labs: Laboratory Last Values WBC 16.5 Th/cmm (4.8-10.8) H 07/16/18 06:25 RBC 3.77 Mil/cmm (4.30-5.70) L 07/16/18 06:25 Hgb 11.6 gm/dL (12-16) L 07/16/18 06:25 Hct 34.5 % (41.0-60) L 07/16/18 06:25 MCV 91.6 fl (80-99) 07/16/18 06:25 MCH 30.7 pg (26.0-30.0) H 07/16/18 06:25 MCHC Differential 33.6 pg (28.0-36.0) 07/16/18 06:25 RDW 15.2 % (11.5-20.0) 07/16/18 06:25 Plt Count 266 Th/cmm (150-400) 07/16/18 06:25 MPV 6.4 fl 07/16/18 06:25 Add Manual Diff YES 07/16/18 06:25 Band Neutrophils % 1 % (0-10) 07/16/18 06:25 Neutrophils (Manual) 69 % (40-80) 07/16/18 06:25 Lymphocytes 21 % (20-50) 07/16/18 06:25 Monocytes 9 % (2-10) 07/16/18 06:25 Eosinophils 0 % (0-5) 07/16/18 06:25 Basophils 0 % (0-3) 07/16/18 06:25 Atypical Lymphocytes 5 % 07/13/18 12:00 Platelet Estimate ADEQUATE (NORMAL) 07/13/18 12:00 Sodium 137 mEq/L (136-145) 07/16/18 06:25 Potassium 4.1 mEq/L (3.5-5.1) 07/16/18 06:25 Chloride 107 mEq/L (98-107) 07/16/18 06:25 Carbon Dioxide 22.9 mEq/L (21.0-31.0) 07/16/18 06:25 Anion Gap 11.2 (7.0-16.0) 07/16/18 06:25 BUN 20 mg/dL (7-25) 07/16/18 06:25 Creatinine 0.8 mg/dL (0.7-1.3) 07/16/18 06:25 Est GFR ( Amer) > 60.0 ml/min (>90) 07/16/18 06:25 Est GFR (Non-Af Amer) > 60.0 ml/min 07/16/18 06:25 BUN/Creatinine Ratio 25.0 07/16/18 06:25 Glucose 116 mg/dL (70-105) H 07/16/18 06:25 Calcium 8.7 mg/dL (8.6-10.3) 07/16/18 06:25 Total Bilirubin 0.4 mg/dL (0.3-1.0) 07/16/18 06:25 AST 18 U/L (13-39) 07/16/18 06:25 ALT 22 U/L (7-52) 07/16/18 06:25 Alkaline Phosphatase 58 U/L (34-104) 07/16/18 06:25 Total Protein 5.5 gm/dL (6.0-8.3) L 07/16/18 06:25 Albumin 2.9 gm/dL (4.2-5.5) L 07/16/18 06:25 Globulin 2.6 gm/dL 07/16/18 06:25 Albumin/Globulin Ratio 1.1 (1.0-1.8) 07/16/18 06:25 Lipase 23 U/L (11-82) 07/13/18 12:00 TSH 3.29 uIU/ml (0.34-5.60) 07/14/18 07:00 Vancomycin Trough 14.0 ug/mL (5-10) H 07/15/18 13:00 - Physical Exam Vitals and I&O: Vital Signs Temp 97.7 F 07/16/18 08:03 Pulse 109 07/16/18 08:03 Resp 18 07/16/18 08:03 BP 126/65 07/16/18 08:03 Pulse Ox 98 07/16/18 08:03 Intake & Output 07/15/18 07/16/18 07/16/18 18:59 06:59 18:59 Intake Total 2500 500 Balance 2500 500 Weight (lbs) 97.069 kg 97.069 kg Intake: Oral 2500 500 Other: # Voids 3 3 # Bowel Movements 1 0 Weight Source Bedscale Bedscale Active Medications: Current Medications Diphenhydramine HCl (Benadryl) 25 mg PO Q8H PRN PRN Reason: Itching Stop: 09/11/18 14:43 Last Admin: 07/14/18 18:35 Dose: 25 mg Doxycycline Hyclate (Vibramycin) 100 mg PO Q12HR [facility] Stop: 09/13/18 08:59 Last Admin: 07/16/18 08:51 Dose: 100 mg Sodium Chloride (Nacl 0.9%) 1,000 mls @ 80 mls/hr IV .[id number] [facility] Stop: 09/11/18 14:47 Last Admin: 07/15/18 05:34 Dose: 80 mls/hr Vancomycin HCl 1 gm/ Sodium (Chloride) 250 mls @ 165 mls/hr IV Q12HR@0300,1500 [facility] Stop: 09/13/18 14:59 Last Admin: 07/16/18 03:26 Dose: Not Given Ibuprofen (Motrin) 800 mg PO TID [facility] Stop: 09/11/18 20:59 Last Admin: 07/16/18 08:51 Dose: 800 mg Lactobacillus Rhamnosus (Culturelle 15b) 1 each PO DAILY [facility] Stop: 09/13/18 08:59 Last Admin: 07/16/18 08:51 Dose: 1 each Lorazepam (Ativan) 1 mg PO Q8H PRN; Protocol PRN Reason: Agitation Stop: 09/11/18 14:44 Last Admin: 07/15/18 11:11 Dose: 1 mg Miscellaneous (Vancomycin Iv Per Pharmacy) 1 ea MC Q24H [facility] Stop: 09/11/18 14:59 Miscellaneous (Probiotic Screen) 1 ea MC PRN PRN PRN Reason: PROTOCOL Stop: 09/12/18 14:27 Prednisone (Deltasone) 20 mg PO TIDWM [facility] Stop: 09/12/18 09:14 Last Admin: 07/16/18 08:51 Dose: 20 mg Trimethoprim/Sulfamethoxazole (Bactrim Ds) 1 tab PO BID [facility] Stop: 09/11/18 22:29 Last Admin: 07/16/18 08:51 Dose: 1 tab General: Alert, No acute distress HEENT: Atraumatic Neck: Supple Cardiovascular: Regular rate Abdomen: Bowel sounds, Soft Extremities: Other (No edema) Neurological: Other (Unstable gait) Skin: Other (Redness and descamation all over the body improving) Psych/Mental Status: Other (Some confusion) Assessment/Plan - Problem List Patient Problems: All Active Problems Exfoliative dermatitis (Acute) L26 RED SKIN LESIONS (Acute) - Assessment Assessment: Current Active Problems Problem Status Onset Exfoliative dermatitis Acute RED SKIN LESIONS Acute Patient is awake, alert, calm in no distress. Arms redness improving. WBC increased but could be secondary to Prednisone. Dx: Cellulitis, Scabies, lice infestation, Chronic alcoholism - Plan Plan: IN NS is ordered , PO AB, Benadryl and prednisone. Follow by ID. Will continue to monitor. Nutritional Asmnt/Malnutr-PDOC - Dietary Evaluation Malnutrition Findings (Please click <Entered> for more info): Nutritional Asmnt/Malnutrition Start: 07/14/18 14: 45 Text: Status: Complete Freq: Protocol: Document 07/14/18 14:45 GOOD (Rec: 07/14/18 15:01 GOOD [email or web address]) Nutritional Asmnt/Malnutrition Patient General Information Nutritional Screening High Risk Consult Diagnosis exfoliative dermatitis Pertinent Medical Hx/Surgical Hx HTN, cellulitis Subjective Information Received diet consult for shaista score 9. Pt sleeping at time of visit. Nursing noted PO intake: 100% dinner last night. Current Diet Order/ Nutrition Support regular Pertinent Medications culturelle, Nacl 0.9% 80ml/hr, vancomycin, bactrim Pertinent Labs 07/14: Na 134, BUN 26, Ca 8.1, Alb 2.4 07/13: Na 130, BUN 22, Ca 8.6, Alb 3.0 Nutritional Hx/Data Height 1.73 m Height (Calculated Centimeters) 172.7 Current Weight (lbs) 98.203 kg Weight (Calculated Kilograms) 98.2 Weight (Calculated Grams) 67192.7 [place] Body Weight 154 lb Body Mass Index (BMI) 32.9 Weight Status Obese GI Symptoms GI Symptoms None Last BM none noted Difficult in: None Food Allergies No Skin Integrity/Comment: dermatitis: entire body, shaista 9 Estimated Nutritional Goals BEE in Kcals: Adj wt of IBW Calories/Kcals/Kg 25-30 (based on adj wt 77.1 kg ) Kcals Calculated 5958-5800 Protein: Adj wt of IBW Protein g/k.8-1 (based on adj wt 77.1 kg ) Protein Calculated 62-77 g Fluid: ml 1479-8411 (1 ml/kcal) Nutritional Problem 1. Problem Problem Altered nutrition related lab values Etiology electrolyte imbalance Signs/Symptoms: Na 134, Ca 8.1 Malnutrition Alert Is there a minimum of two criteria No selected? Query Text:Check all the applicable criteria. A minimum of two criteria are recommended for diagnosis of either severe or non-severe malnutrition. Malnutrition Related to Morbid Obesity Malnutrition related to morbid obesity No Intervention/Recommendation Comments 1. Continue with regular diet as ordered. MD to replace electrolytes as needed 2. Monitor PO intake, wt, labs and skin integrity 3. F/U as moderate risk in 3-5 days, 07/17- Expected Outcomes/Goals Expected Outcomes/Goals 1. PO intake to meet at least 75% of all meals 2. Wt stability, skin integrity to improve, labs to approach WNL. Reviewed by Giselle Law RD
--- NOTE | 2018-07-17 02:28 | Progress Notes ---
DATE: 07/16/2018 SUBJECTIVE: The patient lying in the bed, not in acute distress, no fever, no chills, although the patient has some redness all over the body. No significant change. PHYSICAL EXAMINATION: VITAL SIGNS: Current vital signs shows temperature 97.5, pulse 101, respiration is 18, blood pressure 156/90. GENERAL: The patient is comfortable lying in the bed, not in acute distress. HEENT: Head is normocephalic, atraumatic. Oral cavity moist, pink tongue. NECK: Supple, no JVD, no carotid bruit. Trachea midline. CHEST: Bilateral breath sounds. No crackles or wheezing. HEART: S1, S2 within normal limits. Regular rhythm. No murmur, no gallop. ABDOMEN: Soft, nontender, nondistended. Bowel sounds present. EXTREMITIES: No cyanosis, no clubbing, no edema. NEUROLOGIC: Alert, awake, oriented x3. SKIN: The patient has some redness and scaly skin at some areas of the body. Assessment: 1. Scabies. 2. Lice infectation. 3. Cellulitis all over body. 4. Homeless ness. 5. Leukocytosis. 6. Dermatitis. PLAN: Hydrocortisone 1% cream on the face and check HIV screen in the morning. Apply Lotrisone cream all over the body . Continue doxycycline and vancomycin. JOB# [id number] MTDD
[2018-07-17] MEDS ORDERED: Permethrin 1% Rinse 60 mL Bottle TP ONE (08:00)
[2018-07-17] MEDS: Lactobacillus Rhamnosus GG 15 Billion CFU CAP.SPRINK PO SCH (08:51)
[2018-07-17] MEDS: Sulfamethoxazole/TMP 800/160mg Tab PO SCH (08:52)
[2018-07-17] MEDS ORDERED: Hydrocortisone 1% Cream 1 gm Packet TP SCH (09:00)
[2018-07-17] MEDS ORDERED: Betamethasone/Clotrimazole Cream 15 gm Tube TP SCH (09:00)
--- NOTE | 2018-07-17 09:23 | Discharge Summary ---
General Discharge Summary - Discharge Summary Date of Admission: 07/13/18 Admitting Diagnosis: Cellulitis Discharge Date: 07/17/18 Discharge Diagnosis: Scabies, Lice, Alcoholism, Leukocytosis secondary to General cellulitis. Laboratory Findings: Laboratory Results - last 24 hr 07/16/18 13:23 Vancomycin Trough 4.8 L Hospital Course: Patient responded to treatment, he was started in IV AN treatment for scabies and lice, he received Ativan for alcoholism, Later AB was change to PO. Condition at Discharge: Stable Disposition: PT DISCHARGED HOME Home Medications: Home Medication Medication Instructions Recorded Type Betamethasone/Clotrimazole Cr 1 appl TP BID #14 appl 07/17/18 Rx [Lotrisone Cream] Diphenhydramine HCL [Benadryl] 25 mg PO Q8H PRN #30 cap 07/17/18 Rx Doxycycline Hyclate [Vibramycin*] 100 mg PO Q12HR #14 cap 07/17/18 Rx Inpatient Medications: Current Medications Betamethasone/Clotrimazole (Lotrisone Cream) 1 appl TP BID [facility] Stop: 09/15/18 08:59 Last Admin: 07/17/18 08:52 Dose: 1 appl Diphenhydramine HCl (Benadryl) 25 mg PO Q8H PRN PRN Reason: Itching Stop: 09/11/18 14:43 Last Admin: 07/16/18 21:06 Dose: 25 mg Doxycycline Hyclate (Vibramycin) 100 mg PO Q12HR [facility] Stop: 09/13/18 08:59 Last Admin: 07/17/18 08:52 Dose: 100 mg Hydrocortisone (Hydrocortisone 1%) 1 appl TP BID [facility] Stop: 09/15/18 08:59 Last Admin: 07/17/18 08:53 Dose: 1 appl Sodium Chloride (Nacl 0.9%) 1,000 mls @ 80 mls/hr IV .[id number] [facility] Stop: 09/11/18 14:47 Last Admin: 07/15/18 05:34 Dose: 80 mls/hr Vancomycin HCl 1 gm/ Sodium (Chloride) 250 mls @ 165 mls/hr IV Q12HR@0300,1500 [facility] Stop: 09/13/18 14:59 Last Admin: 07/17/18 04:03 Dose: Not Given Ibuprofen (Motrin) 800 mg PO TID [facility] Stop: 09/11/18 20:59 Last Admin: 07/17/18 08:51 Dose: 800 mg Lactobacillus Rhamnosus (Culturelle 15b) 1 each PO DAILY [facility] Stop: 09/13/18 08:59 Last Admin: 07/17/18 08:51 Dose: 1 each Lorazepam (Ativan) 1 mg PO Q8H PRN; Protocol PRN Reason: Agitation Stop: 09/11/18 14:44 Last Admin: 07/15/18 11:11 Dose: 1 mg Miscellaneous (Vancomycin Iv Per Pharmacy) 1 ea MC Q24H [facility] Stop: 09/11/18 14:59 Miscellaneous (Probiotic Screen) 1 ea MC PRN PRN PRN Reason: PROTOCOL Stop: 09/12/18 14:27 Trimethoprim/Sulfamethoxazole (Bactrim Ds) 1 tab PO BID [facility] Stop: 09/11/18 22:29 Last Admin: 07/17/18 08:52 Dose: 1 tab Prescriptions: Doxycycline Hyclate [Vibramycin*] 100 mg PO Q12HR #14 cap Betamethasone/Clotrimazole Cr [Lotrisone Cream] 1 appl TP BID #14 appl Diphenhydramine HCL [Benadryl] 25 mg PO Q8H PRN #30 cap PRN Reason: Itching Discharge Diet: Regular Consults and Follow-Up: not on staff,PCP is [Primary Care Provider] - NO,PCP PER PT [Other] Consulting Speciality: Dermatology, Other (PCP) Instructions: Rash, Cellulitis, [id number]
[2018-07-17 10:01] LABS: EOSINOPHILE ABSOLUTE 0.1 Th/cmm (0.1-0.4); HEMATOCRIT 32.5 % (41.0-60); HEMOGLOBIN 10.8 gm/dL (12-16); LYMPHOCYTE ABSOLUTE 2.3 Th/cmm (1.5-3.0); MEAN CELL VOLUME 90.7 fl (80-99); MEAN CORPUSCULAR HEMOGLOBIN 30.1 pg (26.0-30.0); MEAN CORPUSCULAR HGB CONC 33.2 pg (28.0-36.0); MEAN PLATELET VOLUME 6.8 fl; MONOCYTE ABSOLUTE 1.6 Th/cmm (0.3-1.0); NEUTROPHILE ABSOLUTE 6.8 Th/cmm (1.8-8.0); PLATELET COUNT 221 Th/cmm (150-400); RED BLOOD COUNT 3.58 Mil/cmm (4.30-5.70); WHITE BLOOD COUNT 10.8 Th/cmm (4.8-10.8)
[2018-07-17 10:07] LABS: LYMPHOCYTE 0 % (20-50)
[2018-07-17 10:10] LABS: % EOSINOPHILS 0.8 % (0.0-5.0); % LYMPHOCYTES 20.9 % (20.0-50.0); % MONOCYTES 15.1 % (2.0-10.0); % NEUTROPHILS 63.2 % (40.0-80.0)
[2018-07-17 10:20] LABS: ALBUMIN 2.5 gm/dL (4.2-5.5); ALKALINE PHOSPHATASE 47 U/L (34-104); ANION GAP 11.1 (7.0-16.0); BILIRUBIN,TOTAL 0.4 mg/dL (0.3-1.0); BUN - UREA NITROGEN 18 mg/dL (7-25); CALCIUM SERUM 8.6 mg/dL (8.6-10.3); CARBON DIOXIDE 24.7 mEq/L (21.0-31.0); CHLORIDE 102 mEq/L (98-107); CREATININE - SERUM 0.8 mg/dL (0.7-1.3); GFR AFRICAN-AMERICAN > 60.0 ml/min (>90); GFR NON AFRICAN-AMERICAN > 60.0 ml/min; GLUCOSE 113 mg/dL (70-105); POTASSIUM SERUM 3.8 mEq/L (3.5-5.1); SGOT 18 U/L (13-39); SGPT/ALT 22 U/L (7-52); SODIUM SERUM 134 mEq/L (136-145); TOTAL PROTEIN,SERUM 4.9 gm/dL (6.0-8.3)
== END 2018-07-17 13:20 | disposition home or self-care (01) | DRG 871 ==
LOC: ER 11:08 → MSI 13:36
PROVIDERS: ADMIT General Practice; ATTEND General Practice
DX: A41.9 Sepsis, unspecified organism (principal); E43 Unspecified severe protein-calorie malnutrition; L03.818 Cellulitis of other sites; E87.1 Hypo-osmolality and hyponatremia; L03.116 Cellulitis of left lower limb; L03.115 Cellulitis of right lower limb; L03.114 Cellulitis of left upper limb; L03.113 Cellulitis of right upper limb; S30.0XXA Contusion of lower back and pelvis, initial encounter; D72.829 Elevated white blood cell count, unspecified; B86 Scabies; B85.2 Pediculosis, unspecified; L26 Exfoliative dermatitis; X58.XXXA Exposure to other specified factors, initial encounter; Y93.89 Activity, other specified; Z59.0 Homelessness; Z88.0 Allergy status to penicillin; Z90.5 Acquired absence of kidney; Y92.89 Other specified places as the place of occurrence of the external cause; Y99.8 Other external cause status; Z68.33 Body mass index [BMI] 33.0-33.9, adult
CPT/HCPCS: 36415-UA; 71045-TC; 72100-TC; 80053-TC; 80202-TC; 83690-TC; 84443-TC; 85007-TC; 85025-TC; 87389-90; J3370; J7030; J7040; Z7610

== ENCOUNTER 2018-12-28 06:06 | Emergency (ER) | payer MEDICARE, MEDICAID ==
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
== END 2018-12-28 06:30 | disposition still patient (30) ==
LOC: ER 06:06
DX: S63.501D Unspecified sprain of right wrist, subsequent encounter (principal); Z88.0 Allergy status to penicillin; X58.XXXD Exposure to other specified factors, subsequent encounter
CPT/HCPCS: Z7502